=== PATIENT | female | born 1950 | race Caucasian/White ===

== ENCOUNTER 2017-02-19 08:19 | Emergency (ER) | payer MEDICARE ==
[2017-02-19] MEDS ORDERED: SODIUM CHLORIDE 0.9% 1,000 ML IV ONE (08:46)
--- NOTE | 2017-02-19 08:49 | ED Physician Documentation ---
History of Present Illness - Stated complaint Stated Complaint: BLOOD IN STOOL - Chief complaint Chief Complaint: Abd Pain - Additonal information Additional information: hx from pt 67 female pshx hyst some dark stools recently then starting yesterday LLQ pain and bloody diarrhea - stool is brown with blood mixed in no NV no fever known diverticulosis does drink but no LUQ pain or hematemesis no blood thinners no recent antibiotics no foreign travel no sick contacts no bad food Review of Systems Constitutional: denies: Fever, Chills Cardiac: denies: Chest pain / pressure Respiratory: denies: Dyspnea GI: reports: Abdominal Pain (LLQ), Diarrhea, Bloody / black stool. denies: Nausea, Vomiting Neurologic: denies: Generalized weakness Endocrine: denies: Easy bruising / bleeding Immunocompromised: denies: Immunocompromised PD PAST MEDICAL HISTORY - Past Medical History Past Medical History: Yes Neuro: Other GI: Diverticulitis - Past Surgical History Past Surgical History: Yes /[employer]: Hysterectomy HEENT: Tonsil/Adenoidectomy - Present Medications Home Medications: Ambulatory Orders Medication Instructions Recorded Confirmed Amox/Clav 875/125 [Augmentin] 1 each PO Q12H #20 tablet 02/19/17 Docusate Sodium 250Mg Capsule 250 mg PO DAILY #30 capsule 02/19/17 [Colace 250Mg Capsule] Hydrochlorothiazide 0 mg DAILY 02/19/17 02/19/17 Metformin HCl 0 mg PO 02/19/17 - Allergies Allergies/Adverse Reactions: Allergies Allergy/AdvReac Type Severity Reaction Status Date / Time codeine Allergy Unknown Verified 02/19/17 08:33 - Social History Does the pt smoke?: No Smoking Status: Never smoker Does the pt drink ETOH?: Yes Does the pt have substance abuse?: Yes PD ED PE NORMAL - Vitals Vital signs reviewed: Yes - Neck Neck: Supple, no meningeal sign - Cardiac Cardiac: RRR - Respiratory Respiratory: No respiratory distress, Clear bilaterally - Abdomen Abdomen: Soft, Other (TTP LLQ s rebound or guarding) - Rectal Rectal: Other (small flaccid non bleeding hemorrhoid, no fissure seen, no mass on JUDY, brown stool no gorss blood, no developer in ER so sent to lab for occult blood) - Derm Derm: Normal color - Extremities Extremities: No deformity - Neuro Neuro: Alert and oriented X 3 Results - Vitals Vitals: Vital Signs - 24 hr 02/19/17 08:23 Temperature 36.5 C Heart Rate 65 Respiratory 18 Rate Blood Pressure 154/82 H O2 Saturation 98 Oxygen O2 Source Room air - Labs Labs: Microbiology 02/19/17 08:40 Occult Blood - Final Stool Laboratory Tests 02/19/17 02/19/17 02/19/17 10:05 10:05 10:05 WBC 7.6 RBC 4.28 Hgb 12.7 Hct 37.5 MCV 87.6 MCH 29.6 MCHC 33.8 RDW 14.2 Plt Count 228 MPV 7.6 L Neut # 5.5 Lymph # 1.2 L Crockett # 0.6 Eos # 0.2 Baso # 0.0 Absolute Nucleated RBC 0.00 Nucleated RBCs 0.0 PT 10.5 INR 0.9 APTT 28.7 Sodium 143 Potassium 4.0 Chloride 108 Carbon Dioxide 27 Anion Gap 8.0 BUN 13 Creatinine 1.0 Estimated GFR (MDRD) 55 L Glucose 131 H Calcium 9.1 Blood Type Antibody Screen 02/19/17 02/19/17 10:05 11:07 WBC RBC Hgb 12.2 Hct MCV MCH MCHC RDW Plt Count MPV Neut # Lymph # Crockett # Eos # Baso # Absolute Nucleated RBC Nucleated RBCs PT INR APTT Sodium Potassium Chloride Carbon Dioxide Anion Gap BUN Creatinine Estimated GFR (MDRD) Glucose Calcium Blood Type O NEGATIVE Antibody Screen NEGATIVE - Rads (name of study) CT abd pelvis Radiology: See rad report (mild wall thickeniong L and sigmoid colon, mild adjacent fat stranding, diverticulosis, this could be dicerticulitis or colitis with the usual ddx of infectious (likely given hx) inflammatory or ischemic ( unlikely given no hx of inflammatory bowel dz and not having pain out of proportion to exam)) PD MEDICAL DECISION MAKING - ED course ED course: given no hx a fib, not acidotic, and pain not out of proportion to exam doubt ischemic colitis will tx with ab - gave zosyn in ER hemodynamically stable H/H nl will rpt hg and if stable will try outpt tx on clear liquids and augmentin with close PMD fup for serial H/H hgb dropped 0.5 which is to be expected after 1 L NS and so feel safe to dc Departure - Departure Disposition: 01 Home, Self Care Clinical Impression: Colitis GIB (gastrointestinal bleeding) Qualifiers: GI bleed type/associated pathology: unspecified gastrointestinal hemorrhage type Qualified Code(s): K92.2 - Gastrointestinal hemorrhage, unspecified Instructions: ED Hematochezia Stable, ED Diverticulitis, ED Diet Clear Liquid Follow-Up: Corinna Gaming PA [Primary Care Provider] - (within 48 hr for a recheck and repeat blood count - also may need referral for GI scopes when infection has resolved ) DASH KRUSE MD [Provider Admit Priv/Credential] - (for colonoscopy after the infection has subsided - this is very important because occasionally cancer can present with colon inflammation and bleeding) Prescriptions: Amox/Clav 875/125 [Augmentin] 1 each PO Q12H #20 tablet Docusate Sodium 250Mg Capsule [Colace 250Mg Capsule] 250 mg PO DAILY #30 capsule Comments: The CT scan shows a colon infection. Although you are bleeding, your blood pressure and heart rate are fine and your blood count is not dropping So it seems reasonable to try and treat you as an outpatient with oral antibiotics You need to be on a clear diet for 48 hours to allow your colon to rest. Also take a stool softener to prevent strain on the colon wall. Close follow up with your PMD for a repeat abdominal exam and to recheck your blood count is very important - even with good antibiotics, some patients worsen and end up needing to be admitted Also, when the infection has resolved you need to get a colonoscopy - sometimes colon cancer can present with similar symptoms
--- NOTE | 2017-02-19 09:42 | CT Report ---
EXAM: CT ABDOMEN AND PELVIS EXAM DATE: 02/19/2017 09:27 AM. CLINICAL HISTORY: LLQ pain and bloody diarrhea. COMPARISONS: 04/13/2015. TECHNIQUE: Routine axial helical CT imaging was performed through the abdomen and pelvis without IV c ontrast. Reconstructions: Coronal and sagittal. In accordance with CT protocol optimization, one or more of the following dose reduction techniques w ere utilized for this exam: automated exposure control, adjustment of mA and/or KV based on patient s ize, or use of iterative reconstructive technique. FINDINGS: Lung Bases: Unremarkable. Abdominal Organs: Noncontrast images of the abdominal organs are grossly unremarkable. Gallbladder/bile ducts: No significant abnormalities. Peritoneal Cavity: Stomach and small bowel are within normal limits. There is mild low left and sigmo id colon wall thickening. There is adjacent fat stranding. There is sigmoid colon diverticulosis. The transverse and right colon are unremarkable. The appendix is normal. No intraperitoneal free air or free fluid. No enlarged mesenteric or retroperitoneal lymph nodes. Pelvic Organs: No bladder stones or wall thickening. Noncontrast images of the visualized pelvic orga ns are unremarkable. Vasculature: Unremarkable. Other: None. IMPRESSION: 1. There is mild wall thickening involving the left colon and sigmoid colon. There is some mild adjac ent fat stranding. There is sigmoid colon diverticulosis. The wall thickening is more likely represen tative of colitis than diverticulitis given the relative long segment involvement. Differential consi derations include ischemic colitis, infection, or inflammatory bowel disease. The transverse and righ t colon are within normal limits. 2. There are atheromatous calcifications of the aorta and iliac vessels. 3. The kidneys demonstrate no stones or hydronephrosis. Referring Provider Line: [phone] SITE ID: [id number]
[2017-02-19] MEDS ORDERED: PIPERACILLIN/TAZOBACTAM 3.375 GM in SODIUM CHLORIDE 0.9% MINIBAG 100 ML IV STA (09:51)
[2017-02-19 10:13] LABS: BASOPHILS % (AUTO) 0.5 %; EOSINOPHILS # (AUTO) 0.2 10^3/uL (0.0-0.7); EOSINOPHILS % (AUTO) 2.6 %; HCT - HEMATOCRIT 37.5 % (37.0-47.0); HGB - HEMOGLOBIN 12.7 g/dL (12.0-16.0); LYMPHOCYTES # (AUTO) 1.2 10^3/uL (1.5-3.5); LYMPHOCYTES % (AUTO) 16.2 %; MEAN CORPUSCULAR HEMOGLOBIN 29.6 pg (27.0-31.0); MEAN CORPUSCULAR HGB CONC 33.8 g/dL (32.0-36.0); MEAN CORPUSCULAR VOLUME 87.6 fL (81.0-99.0); MEAN PLATELET VOLUME 7.6 fL (7.9-10.8); MONOCYTES # (AUTO) 0.6 10^3/uL (0.0-1.0); NEUTROPHILS # (AUTO) 5.5 10^3/uL (1.5-6.6); NEUTROPHILS % (AUTO) 72.7 %; RED BLOOD COUNT 4.28 10^6/uL (4.20-5.40); RED CELL DISTRIBUTION WIDTH 14.2 % (12.0-15.0); UNCORRECTED WHITE BLOOD COUNT 7.6 x10^3/uL; WHITE BLOOD COUNT 7.6 x10^3/uL (4.8-10.8)
[2017-02-19 10:22] LABS: CALCIUM 9.1 mg/dL (8.5-10.3); INR 0.9 (0.8-1.2); PT - PROTHROMBIN TIME 10.5 secs (9.9-12.6)
[2017-02-19 10:30] LABS: PARTIAL THROMBOPLASTIN TIME 28.7 secs (24.9-33.3)
[2017-02-19 12:01] VITALS: BP 150/88
== END 2017-02-19 12:11 | disposition home or self-care (01) ==
LOC: ED 08:19
DX: K52.9 Noninfective gastroenteritis and colitis, unspecified (principal); K92.1 Melena; Z87.19 Personal history of other diseases of the digestive system
CPT/HCPCS: 36415; 74176; 80048; 82270; 85018; 85025; 85610; 85730; 86850; 86900; 86901; 96361; 96374; 99283; 99284

== ENCOUNTER 2017-04-19 09:34 | Day surgery (SDC) | payer MEDICARE ==
[2017-04-19] MEDS ORDERED: LACTATED RINGERS 1,000 ML IV ONE (09:39)
[2017-04-19] MEDS ORDERED: fentaNYL 100 MCG/2 ML VIAL IVP ONE (10:13)
[2017-04-19] MEDS ORDERED: MIDAZOLAM 2 MG/2 ML VIAL IVP ONE (10:13)
--- NOTE | 2017-04-19 10:17 | HISTORY & PHYSICAL EXAMINATION ---
HPI - History of Present Illness HPI Comment/Other: History of Present Illness: Here for change in bowel habits and recurrent colitis. Past Medical History: Reviewed history from 10/05/2009 and no changes required: Obesity OA Hands Impaired Fasting Glucose Hyperlipidemia Heart Murmur Hyperlipidemia Severe Snoring Sleep Apnea/CPAP Heartburn Acid Reflux Anxiety Panic Attacks Claustrophobia Past Surgical History: Reviewed history from 02/25/2008 and no changes required: JOÃO Tonsillectomy Hysterectomy Family History Summary: Reviewed history Last on 08/02/2010 and no changes required:03/16/2017 Father (biol.) - Has Family History of Other Diseases - Cancer of throat, COPD - Entered On: 03/16/2017 General Comments - FH: Both sides: glaucoma Mother: MS Dad: esophageal ca Social History: Reviewed history from 10/13/2009 and no changes required: Patient has never smoked. Alcohol Use - yes Works for [employer], works in the [employer]. Risk Factors: Smoked Tobacco Use: Current every day smoker Counseled to quit/cut down: yes Passive smoke exposure: no Drug use: no HIV high-risk behavior: no Caffeine use: 1 drinks per day Alcohol use: yes Type: wine Drinks per day: 2 Exercise: no Seatbelt use: 100 % Sun Exposure: occasionally Family History Risk Factors: Family History of OK in females < 65 years old: no Family History of [place] in males < 55 years old: no Previous Tobacco Use: Signed On - 03/24/2008 Smoked Tobacco Use: quit Pack-years: 25 Passive smoke exposure: no Drug use: no HIV high-risk behavior: no Caffeine use: 1 drinks per day Physical Exam General: well developed, well nourished, in no acute distress Lungs: clear bilaterally to A & P Heart: regular rate and rhythm, S1, S2 without murmurs, rubs, gallops, or clicks Abdomen: bowel sounds positive; abdomen soft and non-tender without masses, organomegaly, or hernias noted Pulses: pulses normal in all 4 extremities Extremities: no clubbing, cyanosis, edema, or deformity noted with normal full range of motion of all joints Cervical Nodes: no significant adenopathy Psych: alert and cooperative; normal mood and affect; normal attention span and concentration Problems: Problems Added: 1) Dx of Change in bowel habit (OBL02-E17.4) (ICD-787.99) Impression & Recommendations: Problem # 1: change in bowel habits, recent diverticulitis proceed with colonoscopy PMH/PSH - Past Medical History Cardiovascular: positive: None Respiratory: positive: Sleep apnea, CPAP use Neuro: positive: Other Endocrine/Autoimmune: GI: positive: GI bleed, Chronic constipation, Diverticulitis : positive: None HEENT: positive: Chronic sinusitis, Chronic hearing loss Psych: positive: None Musculoskeletal: positive: Osteoarthritis, Chronic back pain Derm: positive: None MRSA Hx?: No - Past Surgical History General: positive: Colonoscopy /TRAINING AND DEVELOPMENT HEAD: positive: Hysterectomy HEENT: positive: Tonsil/Adenoidectomy Social & Family Hx - Social History Does the pt smoke?: No Smoking Status: Never smoker Does the pt drink ETOH?: Yes Does the pt have substance abuse?: Yes Substance Use and Type: Marijuana Meds/Allgy - Home Medications Home Medications: Ambulatory Orders Medication Instructions Recorded Confirmed Metformin HCl 0 mg PO BID 02/19/17 04/19/17 Cholecalciferol (Vitamin D3) 2,000 unit PO DAILY 04/19/17 04/19/17 [Vitamin D] Triamterene/Hydrochlorothiazid 1 each PO DAILY 04/19/17 04/19/17 [Triamterene-Hctz 37.5-25 mg Tb] - Allergies Allergies/Adverse Reactions: Allergies Allergy/AdvReac Type Severity Reaction Status Date / Time codeine Allergy Unknown Verified 02/19/17 08:33 Exam - Vital Signs Vital Signs: Vital Signs x48h Temp Pulse Resp BP Pulse Ox 04/19/17 09:39 36.4 C L 78 16 153/92 H 9 L Results - Lab Results Other Lab Results: Lab Results x24hrs 04/19/17 Range/Units 10:00 POC Whole Bld Glucose 122 H (70 - 100) mg/dL
[2017-04-19 11:20] VITALS: BP 113/70
== END 2017-04-19 09:35 | disposition home or self-care (01) ==
LOC: SDS 09:34
PROVIDERS: ATTEND Surgery
PROC: 0DBL8ZX Excision of Transverse Colon, Via Natural or Artificial Opening Endoscopic, Diagnostic (ICD-10-PCS; principal; 2017-04-19 10:45)
DX: R19.4 Change in bowel habit (principal); K57.30 Diverticulosis of large intestine without perforation or abscess without bleeding; D12.3 Benign neoplasm of transverse colon; K64.8 Other hemorrhoids; E66.9 Obesity, unspecified; F17.200 Nicotine dependence, unspecified, uncomplicated
CPT/HCPCS: 45380; J7120

== ENCOUNTER 2017-09-25 11:32 | Outpatient (CLI) | payer MEDICARE ==
--- NOTE | 2017-09-26 16:03 | Mammography Report ---
DATE OF SERVICE: 09/25/2017 DIGITAL SCREENING MAMMOGRAM: 09/25/2017 CLINICAL INDICATION: A 67-year-old, for screening. COMPARISON: 06/2016, 04/2014, 01/2012, 07/2010. TECHNIQUE: Routine CC and MLO projections were obtained of the breasts. Bilateral laterally exaggerated craniocaudal views. FINDINGS: The breasts demonstrate scattered fibroglandular densities bilaterally. Coarse and punctate, typically benign calcifications are present. No suspicious masses, clustered microcalcifications, or regions of architectural distortion are identified. IMPRESSION: BENIGN FINDINGS. RECOMMENDATION: ROUTINE ANNUAL SCREENING UNLESS OTHERWISE CLINICALLY INDICATED. BIRADS CATEGORY 2-BENIGN FINDINGS. STANDARD QUALIFYING STATEMENTS: 1. This examination was reviewed with the aid of Computer-Aided Detection (CAD) . 2. A negative or benign imaging report should not delay biopsy if clinically suspicious findings are present. Consider surgical consultation if warranted. More than 5 % of cancers are not identified by imaging. 3. Dense breasts may obscure an underlying neoplasm. TD: 09/26/2017 17:01 MARISELA
== END 2017-09-25 11:33 | disposition home or self-care (01) ==
LOC: DI.S 11:32
PROVIDERS: ATTEND Physician Assistant
DX: Z12.31 Encounter for screening mammogram for malignant neoplasm of breast (principal)
CPT/HCPCS: 77067

== ENCOUNTER 2019-03-13 14:16 | Outpatient (CLI) | payer MEDICARE, OTHER ==
--- NOTE | 2019-03-17 11:13 | Mammography Report ---
Reason: ENCOUNTER FOR SCREENING MAMMOGRAM FOR MALIGNANT NE Procedure Date: 03/13/2019 Accession Number: [id number] / [id number] Procedure: JEANETH - Screening Mammo w/Jay CPT Code: FULL RESULT: EXAM: Screening Mammo w/Jay DATE: 03/13/2019 3:16 PM CLINICAL HISTORY: Screening encounter. History of early menses. TECHNIQUE: (B) - Bilateral CC and MLO views were obtained. COMPARISON: 09/25/2017 through 01/26/2012. PARENCHYMAL PATTERN: (A) - The breast(s) demonstrate(s) scattered fibroglandular densities. FINDINGS: There are coarse typically benign calcifications. There are no suspicious masses, calcifications, or areas of distortion. IMPRESSION: Benign findings. BI-RADS category 2. RECOMMENDATION: (ANNUAL) - Recommend routine annual screening mammography. BI-RADS CATEGORY: (2) - Benign Findings. STANDARD QUALIFYING STATEMENTS: 1. This examination was not reviewed with the aid of Computer-Aided Detection (CAD). 2. A negative or benign imaging report should not preclude biopsy if clinically suspicious findings are present. 3. Dense breasts may obscure an underlying neoplasm. 4. This examination was reviewed with the aid of 3D breast imaging (tomosynthesis).
== END 2019-03-13 14:17 | disposition home or self-care (01) ==
LOC: DI 14:16
PROVIDERS: ATTEND Physician Assistant
DX: Z12.31 Encounter for screening mammogram for malignant neoplasm of breast (principal)
CPT/HCPCS: 77063; 77067

== ENCOUNTER 2019-03-13 14:20 | Outpatient (CLI) | payer MEDICARE, OTHER ==
--- NOTE | 2019-03-17 08:01 | DEXA Report ---
Reason: POSTMENOPAUSAL STATE Procedure Date: 03/13/2019 Accession Number: [id number] / [id number] Procedure: DEX - Dexa Spine and/or Hip CPT Code: FULL RESULT: EXAM: Dexa Spine and/or Hip DATE: 03/13/2019 3:14 PM CLINICAL HISTORY: POSTMENOPAUSAL STATE TECHNIQUE: Dual energy x-ray absorptiometry (DXA) was performed on a [employer] System. Regions measured are the AP Spine, femoral neck, and if needed forearm. COMPARISON: None. In accordance with the International Society for Clinical Densitometry (ISCD) guidelines, data from previous exams may be reanalyzed using current recommendations and techniques. This is done to allow a more accurate basis for comparison with the current study. FINDINGS: The data for the lumbar spine is as follows: BMD (g/cm/cm) T-SCORE Z-SCORE REGION L1 1.069 -0.5 0.7 L2 1.118 -0.7 0.5 L3 1.302 0.9 2.1 L4 1.256 0.5 1.7 TOTAL 1.185 0.0 1.3 NOTE: All evaluable vertebrae are used for classification The data for the hip is as follows: BMD (g/cm/cm) T-SCORE Z-SCORE REGION Neck 0.847 -1.4 0.1 TOTAL 0.871 -1.1 0.1 NOTE: The femoral neck or total proximal femur, whichever is lowest, is used for classification. IMPRESSION: THE WHO CLASSIFICATION BASED ON THE INTERNATIONAL REFERENCE STANDARD IS OSTEOPENIA. THE FRACTURE RISK IS INCREASED. RECOMMENDATION: Patients with diagnosis of osteoporosis or osteopenia should have regular bone mineral density assessment. For those eligible for Medicare, routine testing is allowed once every 2 years. Testing frequency can be increased for patients who have rapidly progressing disease or for those who are receiving medical therapy to restore bone mass. COMMENT: World Health Organization (WHO) definitions for osteoporosis and osteopenia: NORMAL BMD: T-score at -1.0 or higher, fracture risk is low OSTEOPENIA BMD: T-score between -1.0 and -2.5, fracture risk is increased. OSTEOPOROSIS BMD: T-score at -2.5 or lower, fracture risk is high. National Osteoporosis Foundation recommends: 1. Obtain adequate dietary calcium (at least 1200 mg per day) and vitamin D (400-800 international units per day). 2. Participate, as appropriate, in regular weightbearing and muscle-strengthening exercise. 3. Avoid tobacco use and reduce alcohol and caffeine intake. 4. For more detailed information see the website at www.NOF.org.
== END 2019-03-13 14:21 | disposition home or self-care (01) ==
LOC: DI 14:20
PROVIDERS: ATTEND Physician Assistant
DX: M85.89 Other specified disorders of bone density and structure, multiple sites (principal); Z78.0 Asymptomatic menopausal state
CPT/HCPCS: 77080

== ENCOUNTER 2019-03-18 20:13 | Outpatient (CLI) | payer MEDICARE, OTHER | END 2019-03-18 20:14 | disposition EMS.NT | LOC: EMS 20:13 | PROVIDERS: ATTEND Surgery | DX: R06.00 Dyspnea, unspecified (principal) ==

== ENCOUNTER 2020-04-15 12:32 | Outpatient (CLI) | payer MEDICARE, OTHER ==
--- NOTE | 2020-04-16 12:42 | Mammography Report ---
BILATERAL DIGITAL DIAGNOSTIC MAMMOGRAM 3D/2D: 04/15/2020 CLINICAL: Nipple discharge, right breast, not bloody. Comparison is made to exams dated: 03/13/2019 mammogram, 09/25/2017 mammogram, 06/15/2016 mammogram, a nd 04/24/2014 mammogram - [facility]. There are scattered fibroglandular elements i n both breasts. No significant masses, calcifications, or other findings are seen in either breast. No significant in terval change. IMPRESSION: INCOMPLETE: NEEDS ADDITIONAL IMAGING EVALUATION No mammographic evidence of malignancy. A targeted ultrasound of the retroareolar right breast is recommended for nipple discharge and will i mmediately follow. This exam was interpreted at Station ID: [id number]. NOTE: For mammograms, a report in lay terms will be sent to the patient. Approximately 15% of breast malignancies will not be visualized mammographically. In the management of a palpable breast mass, a negative mammogram must not discourage biopsy of a clinically suspicious lesion. Electronically Signed By: Rashad Moreira M.D. slc/:04/15/2020 13:21:01 ACR BI-RADS Category 0: Incomplete 3340F PARENCHYMAL PATTERN: (A) - The breast(s) demonstrate(s) scattered fibroglandular densities. BI-RADS CATEGORY: (0) - 0 Ultrasound [id number] Immediate follow-up LATERALITY: (B)
--- NOTE | 2020-04-16 12:42 | Ultrasound Report ---
LIMITED ULTRASOUND OF RIGHT BREAST: 04/15/2020 CLINICAL: Nipple discharge, right breast, not bloody. Comparison is made to exams dated: 04/15/2020 mammogram, 03/13/2019 mammogram, 09/25/2017 mammogram, an d 06/15/2016 mammogram - [facility]. Color flow and real-time ultrasound of the right breast retroareolar were performed. Duenas scale imag es of the real-time examination were reviewed. No significant abnormalities were seen sonographically in the retroareolar right breast. IMPRESSION: INCOMPLETE: NEEDS ADDITIONAL IMAGING EVALUATION No sonographic evidence of malignancy. Recommend breast MRI with IV contrast in this patient with right breast single duct spontaneous clear nipple discharge. Exam findings conveyed to the patient. This exam was interpreted at Station ID: [id number]. Electronically Signed By: Rashad Moreira M.D. slc/:04/15/2020 13:46:42 Ultrasound BI-RADS: 0 Indeterminate BI-RADS CATEGORY: (0) - 0 MRI [id number] Immediate follow-up LATERALITY: (B)
== END 2020-04-15 12:33 | disposition home or self-care (01) ==
LOC: DI 12:32
PROVIDERS: ATTEND Registered Nurse
DX: N64.52 Nipple discharge (principal)
CPT/HCPCS: 76642; 77066

== ENCOUNTER 2020-04-26 08:45 | Outpatient (CLI) | payer MEDICARE, OTHER ==
[2020-04-26] MEDS ORDERED: GADOBUTROL 7.5 MMOL/7.5 ML VIAL ONE (09:23)
[2020-04-26] MEDS ORDERED: GADOBUTROL 7.5 MMOL/7.5 ML VIAL IVP ONE (10:19)
--- NOTE | 2020-04-27 09:26 | MRI Report ---
BREAST MRI OF BOTH BREASTS: 04/26/2020 CLINICAL: Nipple discharge, right breast, not bloody. PROCEDURE: MR BREAST BILATERAL WITH CAD INDICATIONS: Right breast nipple discharge. No palpable mass. TECHNIQUE: The patient was placed prone in a dedicated breast imaging coil. Precontrast axial STIR and 3D FLASH without fat saturation sequences were obtained. Both before and after bolus injection of contrast, sequential 1-minute axial 3D FLASH with fat saturation sequences for 3 time points, with subtraction images and maximum intensity projections (MIPs) generated. Delayed sagittal FLASH images with fat s aturation were also obtained. Computer-aided detection, including computer algorithm analysis of MRI image data for lesion detectio n and characterization, pharmacokinetic analysis, with further physician review for interpretation, w as performed. CONTRAST: 7.5 cc Gadavist. COMPARISON: Mammogram 04/15/2020. Right retroareolar ultrasound 04/15/2020. FINDINGS: Image quality: Good. There is minimal background parenchymal enhancement. Right breast: No mass or suspicious enhancement. No instrinsic T1 hyperintense signal in the retroareolar breast. Left breast: No mass or suspicious enhancement. No instrinsic T1 hyperintense signal in the retroareolar breast. Miscellaneous: No enlarged or suspicious lymph nodes demonstrated. IMPRESSION: PROBABLY BENIGN 1. Right breast: No mass or suspicious enhancement. 2. Left breast: No mass or suspicious enhancement. 3. No suspicious lymph nodes in either axilla. BIRADS 3. Patient should continue to monitor the nipple discharge. A follow-up right breast mammogram and possi ble ultrasound in 6 months is recommended in this patient with spontaneous single duct nipple dischar ge with negative imaging. If nipple discharge increases, surgical consultation should be considered. COMMENT: The imaging literature indicates that a negative contrast breast MRI examination has a high sensitivity and a moderate specificity for detecting and excluding invasive carcinomas to a detection threshold of 3-5 mm; nonetheless, appropriate clinical and mammographic follow-up are recommended. MRI is not sensitive for detecting DCIS (ductal carcinoma in situ) and may not detect large invasive neoplasms that show only minimal enhancement such as mucinous carcinoma. If there are suspicious ameena cifications or clinically worrisome palpable masses, then biopsy should still be considered. Invasiv e neoplasms can be hidden by co-existent and benign enhancement caused by mastitis, hormone therapy e ffects, radiation therapy, , and recent biopsy or surgery. False positive examinations can occur in a number of circumstances, including breasts that have recently been subject to invasive pro cedures and those that contain atypical ductal hyperplasia, hormonally stimulated glandular tissue, f at necrosis, or radial scars. Reviewed by: Rashad Moreira M.D. on 04/26/2020 at 15:06 This exam was interpreted at Station ID: [id number]. Electronically Signed By: Rashad Moreira M.D. slc/:04/26/2020 16:17:13 ACR BI-RADS Category 3: Probably benign 3343F BI-RADS CATEGORY: (3) - 3 Mammo and [place] [id number] 6 month follow-up LATERALITY: (B)
== END 2020-04-26 08:46 | disposition home or self-care (01) ==
LOC: DI 08:45
PROVIDERS: ATTEND Registered Nurse
DX: R92.2 Inconclusive mammogram (principal); N64.52 Nipple discharge
CPT/HCPCS: 77049; A9585

== ENCOUNTER 2021-07-01 12:32 | Outpatient (CLI) | payer MEDICARE, OTHER ==
--- NOTE | 2021-07-04 08:20 | Mammography Report ---
BILATERAL DIGITAL DIAGNOSTIC MAMMOGRAM 3D/2D: 07/01/2021 CLINICAL: Short term follow up of the right breast, due for bilateral imaging. Comparison is made to exams dated: 04/26/2020 breast MRI, 04/15/2020 ultrasound, 04/15/2020 mammogram, 03/13/2019 mammogram, 09/25/2017 mammogram, and 06/15/2016 mammogram - [facility]. T here are scattered fibroglandular elements in both breasts. No significant masses, calcifications, or other findings are seen in either breast. IMPRESSION: BENIGN There is no mammographic evidence of malignancy. Patient reports significant improvement in right breast nipple discharge. The discharge is now descri bed as scant with manual expression and clear. No discharge for several weeks. A 1 year mammogram is recommended. Exam findings were conveyed to the patient. Patient is advised to monitor for significant change. Cli nical follow-up is recommended. If discharge were to increase or new symptoms develop, recommend [address] st MRI for further evaluation. This exam was interpreted at Station ID: [id number]. NOTE: For mammograms, a report in lay terms will be sent to the patient. Approximately 15% of breast malignancies will not be visualized mammographically. In the management of a palpable breast mass, a negative mammogram must not discourage biopsy of a clinically suspicious lesion. Electronically Signed By: Rashad Moreira M.D. slc/:07/01/2021 13:33:53 ACR BI-RADS Category 2: Benign Finding(s) 3342F PARENCHYMAL PATTERN: (A) - The breast(s) demonstrate(s) scattered fibroglandular densities. BI-RADS CATEGORY: (2) - 2 RECOMMENDATION: (ANNUAL) - Recommend routine annual screening mammography. [id number] 1 year screening LATERALITY: (B)
== END 2021-07-01 12:33 | disposition home or self-care (01) ==
LOC: DI 12:32
PROVIDERS: ATTEND Registered Nurse
DX: N64.52 Nipple discharge (principal)

== ENCOUNTER 2021-10-15 08:42 | Outpatient (CLI) | payer MEDICARE, OTHER ==
[2021-10-15] MEDS ORDERED: IOPAMIDOL-300 50 ML VIAL ONE (09:00)
[2021-10-15] MEDS ORDERED: IOVERSOL 320 100 ML VIAL IVP ONE ×2 (09:00→14:40)
--- NOTE | 2021-10-15 14:35 | CT Report ---
PROCEDURE: CT abdomen and pelvis with contrast INDICATIONS: CHANGE IN STOOL CALIBER CONTRAST: IV CONTRAST: Optiray 320 ml: 100 PO CONTRAST: Isovue 300 ml50 TECHNIQUE: After the administration of contrast, 5 mm thick sections acquired from the diaphragms to the sym physis. 5 mm thick coronal and sagittal reformats were acquired. For radiation dose reduction, the following was used: automated exposure control, adjustment of mA and/or kV according to patient size . COMPARISON: 02/19/2017 FINDINGS: Image quality: Excellent. ABDOMEN: Lung bases: Lung bases are clear. Heart size is normal. Solid organs: Liver and spleen are normal in size and enhancement. Gallbladder unremarkable Biliar y system is non dilated. Pancreas enhances normally. No adrenal nodules. Kidneys demonstrate jb l size and enhancement, without hydronephrosis. Peritoneum and bowel: Bowel loops demonstrate normal wall thickness and caliber. No free fluid or a ir. Multiple diverticula arise from the sigmoid colon without evidence of diverticulitis. Normal appe ndix noted. Nodes and vessels: No retroperitoneal or mesenteric adenopathy by size criteria. Aorta and inferior vena cava are normal in size. Miscellaneous: No ventral hernias. PELVIS: Genitourinary: Bladder wall thickness is normal. Hysterectomy. Miscellaneous: No inguinal hernias or adenopathy. Bones: No suspicious bony lesions. No vertebral body compression fractures. IMPRESSION: No acute CT findings in the abdomen or pelvis. Sigmoid diverticulosis without evidence of diverticulitis. Reviewed by: Thomas Sanders MD on 10/15/2021 1:33 PM [place] Approved by: Thomas Sanders MD on 10/15/2021 1:33 PM [facility] Station ID: [id number]
[2021-10-15] MEDS ORDERED: IOPAMIDOL-300 50 ML VIAL PO ONE (14:41)
== END 2021-10-15 08:43 | disposition home or self-care (01) ==
LOC: DI 08:42
PROVIDERS: ATTEND Registered Nurse
DX: R19.5 Other fecal abnormalities (principal); K57.30 Diverticulosis of large intestine without perforation or abscess without bleeding
CPT/HCPCS: 74177; Q9967

== ENCOUNTER 2022-06-14 09:45 | Day surgery (SDC) | payer MEDICARE, OTHER ==
[2022-06-14] MEDS ORDERED: LACTATED RINGERS 1,000 ML IV ONE ×2 (09:52→11:38)
[2022-06-14] MEDS ORDERED: PROPOFOL 500 MG/50 ML 500 MG/50 ML VIAL ONE (10:31)
[2022-06-14] MEDS ORDERED: PROPOFOL 200 MG/20 ML VIAL IVP ONE (10:31)
--- NOTE | 2022-06-14 10:36 | ANESTHESIA ---
Pre-Anesthesia VS, & Labs - Diagnosis screening colonoscopy - Procedure colonoscopy Vital Signs: Temp Pulse Resp BP Pulse Ox O2 Flow Rate 36.8 C 70 16 183/100 H 100 0 06/14/22 10:05 06/14/22 10:05 06/14/22 10:05 06/14/22 10:05 06/14/22 10:05 06/14/22 10:05 Height: 5 ft 5 in Weight (kg): 85.2 kg Body Mass Index: 31.2 BMI Classification: Obese - NPO >8 hours - Is Patient ?: No Home Medications and Allergies Triamterene/Hydrochlorothiazid [Triamterene-Hctz 37.5-25 mg Tb] 1 each PO PRN PRN 04/19/17 Allergies/Adverse Reactions: Allergies Allergy/AdvReac Type Severity Reaction Status Date / Time codeine Allergy Unknown Verified 02/19/17 08:33 Anes History & Medical History - Anesthetic History Anesthesia Complications: reports: No previous complications - Medical History Cardiovascular: reports: None Pulmonary: reports: Sleep apnea, CPAP use Gastrointestinal: reports: GI bleed, Chronic constipation, Diverticulitis Urinary: reports: None Musculoskeletal: reports: Osteoarthritis, Chronic back pain Endocrine/Autoimmune: Skin: reports: None Smoking Status: Never smoker History of Cancer?: No - Surgical History General: reports: Colonoscopy Eyes Ears Nose Throat (EENT): reports: Tonsil/Adenoidectomy Gynecologic: reports: Hysterectomy Exam General: Alert, Oriented x3, Cooperative Dental: WNL Mouth Openin Fingerbreadth Neck Mobility: Normal Mallampati classification: II Thyromental Distance: greater than 6 cm Respiratory: Lungs clear Cardiovascular: Regular rate Plan Anesthesia Type: Total IV Consent for Procedure(s) Verified and Reviewed: Yes Code Status: Attempt Resuscitation ASA classification: 2-Mild systemic disease Is this case an emergency?: No
[2022-06-14 11:57] VITALS: BP 121/68
== END 2022-06-14 09:46 | disposition home or self-care (01) ==
LOC: SDS 09:45
PROVIDERS: ATTEND Surgery
PROC: 0DBL8ZX Excision of Transverse Colon, Via Natural or Artificial Opening Endoscopic, Diagnostic (ICD-10-PCS; 2022-06-14)
PROC: 0DBP8ZX Excision of Rectum, Via Natural or Artificial Opening Endoscopic, Diagnostic (ICD-10-PCS; 2022-06-14)
PROC: 0DBK8ZX Excision of Ascending Colon, Via Natural or Artificial Opening Endoscopic, Diagnostic (ICD-10-PCS; principal; 2022-06-14 10:45)
DX: Z12.11 Encounter for screening for malignant neoplasm of colon (principal); D12.2 Benign neoplasm of ascending colon; D12.3 Benign neoplasm of transverse colon; K63.5 Polyp of colon; K57.30 Diverticulosis of large intestine without perforation or abscess without bleeding; G47.33 Obstructive sleep apnea (adult) (pediatric); E66.9 Obesity, unspecified; Z68.31 Body mass index [BMI] 31.0-31.9, adult; Z87.891 Personal history of nicotine dependence
CPT/HCPCS: 45380; J7120

== ENCOUNTER 2022-12-30 19:06 | Outpatient (CLI) | payer MEDICARE, OTHER | END 2022-12-30 23:59 | disposition critical access hospital (66) | LOC: EMS 19:06 | DX: R06.02 Shortness of breath (principal); R53.1 Weakness; R55 Syncope and collapse; R42 Dizziness and giddiness; R07.9 Chest pain, unspecified | CPT/HCPCS: A0425; A0427 ==

== ENCOUNTER 2022-12-30 19:46 | Emergency (ER) | payer MEDICARE, OTHER ==
--- NOTE | 2022-12-30 19:59 | ED Physician Documentation ---
PD HPI CHEST PAIN - Stated complaint Stated Complaint: LIGHTHEADED, WEAK, CP - Chief complaint Chief Complaint: Cardiac - History obtained from History obtained from: Patient - History of Present Illness Timing - details: Still present in ED - Additional information Additional information: 72-year-old woman ate [employer] for dinner which is very typical for her. Subsequently went up the stairs and started to feel lightheaded weak and some substernal chest pressure. It lasted only a minute and then went away when she belched. She is pain-free now. No recent travel, pedal edema or calf pain. PD PAST MEDICAL HISTORY - Past Medical History Cardiovascular: None Respiratory: Sleep apnea, CPAP use Endocrine/Autoimmune:  GI: GI bleed, Chronic constipation, Diverticulitis : None HEENT: Chronic sinusitis, Chronic hearing loss Psych: None Musculoskeletal: Osteoarthritis, Chronic back pain Derm: None - Past Surgical History Past Surgical History: Yes General: Colonoscopy /[employer]: Hysterectomy HEENT: Tonsil/Adenoidectomy - Present Medications Home Medications: Ambulatory Orders Medication Instructions Recorded Confirmed Triamterene/Hydrochlorothiazid 1 each PO PRN PRN 04/19/17 06/14/22 [Triamterene-Hctz 37.5-25 mg Tb] - Allergies Allergies/Adverse Reactions: Allergies Allergy/AdvReac Type Severity Reaction Status Date / Time codeine Allergy Unknown Verified 02/19/17 08:33 meclizine Allergy Unknown Verified 06/14/22 11:06 - Social History Does the pt smoke?: No Smoking Status: Never smoker Does the pt drink ETOH?: Yes Does the pt have substance abuse?: Yes PD ED PE NORMAL - Vitals Vital signs reviewed: Yes (Hypertensive) - General General: Alert and oriented X 3, No acute distress - Cardiac Cardiac: RRR, No murmur - Respiratory Respiratory: No respiratory distress, Clear bilaterally - Abdomen Abdomen: Soft, Non tender - Extremities Extremities: No edema, No calf tenderness / cord - Neuro Neuro: Alert and oriented X 3, Normal speech Results - Vitals Vitals: Vital Signs - 24 hr 12/30/22 12/30/22 19:48 21:02 Temperature 36.8 C Heart Rate 98 79 Respiratory 18 14 Rate Blood Pressure 196/89 H 174/74 H O2 Saturation 99 95 Oxygen O2 Source Room air - EKG (time done) 1946 EKG releavant findings:: EKG personally interpreted by author of this note. Relevant findings are: Rate: Rate (enter#) (98) Rhythm: NSR [place]: Normal Intervals: Normal PA QRS: Normal Ischemia: Normal ST segments - Labs Labs: Laboratory Tests 12/30/22 12/30/22 12/30/22 20:36 20:36 20:36 WBC 10.3 RBC 4.69 Hgb 14.1 Hct 42.0 MCV 89.6 MCH 30.1 MCHC 33.6 RDW 13.5 Plt Count 224 MPV 9.4 Neut # (Auto) 8.2 H Lymph # (Auto) 1.2 L [place] # (Auto) 0.7 Eos # (Auto) 0.1 Baso # (Auto) 0.0 Absolute Nucleated RBC 0.00 Nucleated RBC % 0.0 Sodium 134 L Potassium 4.3 Chloride 98 L Carbon Dioxide 23 Anion Gap 13.0 BUN 24 H Creatinine 1.2 H Estimated GFR (MDRD) 44 L Glucose 239 H Calcium 10.0 Total Bilirubin 0.5 AST 25 ALT 23 Alkaline Phosphatase 51 Troponin I High Sens 4.7 Total Protein 7.4 Albumin 4.3 Globulin 3.1 Albumin/Globulin Ratio 1.4 Lipase 45 - Rads (name of study) Single view chest x-ray is unremarkable Relevant Findings:: Final report received, EMP independent interpretation of test PD Medical Decision Making - ED course ED course: 72-year-old woman presents with resolved chest pain. The pain resolved on burping suggesting a GI source. She is pain-free here with a very nonischemic EKG. Negative biomarkers. We did discuss the elevated blood sugar. Note made that on past metabolic panel she always runs somewhat high blood sugar, this is diet since then. Previous A1c's were normal. Will add on an A1c and she will follow-up with her doctor to discuss. The remainder of her CBC and CMP were normal save very mildly depressed renal function. Troponin normal/negative. Departure - Departure Disposition: 01 Home, Self Care Clinical Impression: Hyperglycemia Chest pain Qualifiers: Chest pain type: unspecified Qualified Code(s): R07.9 - Chest pain, unspecified Condition: Good Record reviewed to determine appropriate education?: Yes Instructions: ED Chest Pain Atypical Unkn Cause Comments: As discussed, your blood glucose today was 239. I have added an A1c onto the labs we george, please follow-up with your doctor to discuss this lab. Also your renal function was very mildly depressed and should be followed over time. Drink plenty of fluids. Return if pain recurs. Follow-up with your nurse practitioner as scheduled.
--- NOTE | 2022-12-30 20:13 | XRAY Report ---
PROCEDURE: Chest 1 View X-Ray INDICATIONS: Chest Pain TECHNIQUE: One view of the chest was acquired. COMPARISON: None. FINDINGS: Surgical changes and devices: None. Lungs and pleura: No pleural effusions or pneumothorax. Lungs are clear. Mediastinum: Mediastinal contours appear normal. Heart size is normal. Bones and chest wall: No suspicious bony lesions. Overlying soft tissues appear unremarkable. IMPRESSION: Normal for age, source of chest pain is not found. Reviewed by: Gokul Bahena MD on 12/30/2022 8:11 PM PDT Approved by: Gokul Bahena MD on 12/30/2022 8:11 PM PDT Station ID: [id number]
[2022-12-30 20:49] LABS: BASOPHILS % (AUTO) 0.4 %; EOSINOPHILS # (AUTO) 0.1 10^3/uL (0.0-0.7); EOSINOPHILS % (AUTO) 0.5 %; HGB - HEMOGLOBIN 14.1 g/dL (12.0-16.0); LYMPHOCYTES # (AUTO) 1.2 10^3/uL (1.5-3.5); MEAN CORPUSCULAR HEMOGLOBIN 30.1 pg (27.0-31.0); MEAN CORPUSCULAR HGB CONC 33.6 g/dL (32.0-36.0); MEAN CORPUSCULAR VOLUME 89.6 fL (81.0-99.0); MEAN PLATELET VOLUME 9.4 fL (7.9-10.8); MONOCYTES # (AUTO) 0.7 10^3/uL (0.0-1.0); MONOCYTES % (AUTO) 6.7 %; NEUTROPHILS # (AUTO) 8.2 10^3/uL (1.5-6.6); PLT - PLATELET COUNT 224 10^3/uL (130-450); RED BLOOD COUNT 4.69 10^6/uL (4.20-5.40); RED CELL DISTRIBUTION WIDTH 13.5 % (12.0-15.0); WHITE BLOOD COUNT 10.3 x10^3/uL (4.8-10.8)
[2022-12-30 21:02] VITALS: BP 174/74
[2022-12-30 21:02] LABS: ALBUMIN 4.3 g/dL (3.2-5.5); ALBUMIN/GLOBULIN RATIO 1.4 (1.0-2.2); BILIRUBIN,TOTAL 0.5 mg/dL (0.2-1.0); CREATININE 1.2 mg/dL (0.4-1.0); POTASSIUM 4.3 mmol/L (3.5-5.0); TOTAL PROTEIN 7.4 g/dL (6.7-8.2)
[2022-12-30 21:51] LABS: ESTIMATED AVERAGE GLUCOSE 134 mg/dL (70-100); HEMOGLOBIN A1c% 6.3 % (4.27-6.07)
== END 2022-12-30 21:19 | disposition home or self-care (01) ==
LOC: ED 19:46
DX: R73.9 Hyperglycemia, unspecified (principal); R07.9 Chest pain, unspecified
CPT/HCPCS: 36415; 80053; 83036; 83690; 84484; 85025; 93005; 99283; 99284

== ENCOUNTER 2023-06-19 13:00 | Outpatient (CLI) | payer MEDICARE, OTHER ==
--- NOTE | 2023-06-19 15:01 | DEXA Report ---
PROCEDURE: Dexa Spine and/or Hip INDICATIONS: OSTEOPENIA TECHNIQUE: Dual energy x-ray absorptiometry (DXA) was performed on a [employer] System. Regions measur ed are the AP Spine, femoral neck, and if needed forearm. COMPARISON: 03/13/2019 FINDINGS: Lumbar Spine: Bone Mineral Density 1.1 to g/cm/cm,T score -0.5. Since the most recent prior study, there has been a statistically significant decrease in bone mineral density by -5.5 percent. Left Femoral Neck: Bone Mineral Density 0.799 g/cm/cm, T score -1.7. Left Hip: Bone Mineral Density 0.833 g/cm/cm,T score -1.4. Since the most recent prior study, there has been a statistically significant decrease in bone mineral density by -4.4 percent. (T score greater or equal to -1.0: NORMAL) (T score from -1.1 to -2.4: OSTEOPENIA) (T score less than or equal to -2.5 to: OSTEOPOROSIS) Impression: By WHO criteria, this patient has low bone density (osteopenia). Interval statistical decrease in bone minteral density of the lumbar spine. Interval statistical decr ease in bone minteral density of the hip. Patients with diagnosis of osteoporosis or osteopenia should have regular bone mineral density assess ment. For those eligible for Medicare, routine testing is allowed once every 2 years. Testing frequ ency can be increased for patients who have rapidly progressing disease or for those who are receivin g medical therapy to restore bone mass. Reviewed by: Adarsh Thompson on 06/19/2023 3:00 PM PDT Approved by: Adarsh Thompson on 06/19/2023 3:00 PM PDT Station ID: [id number]
== END 2023-06-19 13:01 | disposition home or self-care (01) ==
LOC: DI 13:00
PROVIDERS: ATTEND Registered Nurse
DX: M85.89 Other specified disorders of bone density and structure, multiple sites (principal)

== ENCOUNTER 2023-06-19 13:01 | Outpatient (CLI) | payer MEDICARE, OTHER ==
--- NOTE | 2023-06-20 09:39 | Mammography Report ---
BILATERAL DIGITAL SCREENING MAMMOGRAM 3D/2D: 06/19/2023 CLINICAL: Routine screening. Comparison is made to exams dated: 07/01/2021 mammogram, 04/26/2020 breast MRI, 04/15/2020 ultrasound, and 04/15/2020 mammogram - [facility]. There are scattered areas of fibroglandular density in both breasts (category b / 25%-50% glandular t issue). There are benign calcifications in both breasts. No significant masses, calcifications, or other findings are seen in either breast. There has been no significant interval change. IMPRESSION: BENIGN There is no mammographic evidence of malignancy. A 1 year screening mammogram is recommended. Based on the Tyrer Cuzick model (a risk assessment model) the patients lifetime risk is 3.1% and her 10 year risk is 3.1%. According to the ACR, ACS, and NCCN guidelines, an annual breast MRI exam lui g with mammogram is recommended if the patients lifetime risk is 20% or greater. This exam was interpreted at Station ID: [id number]. NOTE: For mammograms, a report in lay terms will be sent to the patient. Approximately 15% of breast malignancies will not be visualized mammographically. In the management of a palpable breast mass, a negative mammogram must not discourage biopsy of a clinically suspicious lesion. Electronically Signed By: Isra patino/ward:06/19/2023 15:40:12 letter sent: No_Letter ACR BI-RADS Category 2: Benign Finding(s) 3342F PARENCHYMAL PATTERN: (A) - The breast(s) demonstrate(s) scattered fibroglandular densities. BI-RADS CATEGORY: (2) - 2 Mammogram [id number] 1 year screening LATERALITY: (B)
== END 2023-06-19 13:02 | disposition home or self-care (01) ==
LOC: DI 13:01
PROVIDERS: ATTEND Registered Nurse
DX: Z12.31 Encounter for screening mammogram for malignant neoplasm of breast (principal); R92.323 Mammographic fibroglandular density, bilateral breasts

== ENCOUNTER 2023-09-27 01:20 | Outpatient (CLI) | payer MEDICARE, OTHER | END 2023-09-27 23:59 | disposition EMS.NT | LOC: EMS 01:20 | DX: R20.2 Paresthesia of skin (principal); R09.89 Other specified symptoms and signs involving the circulatory and respiratory systems; R60.0 Localized edema ==

== ENCOUNTER 2023-10-01 07:00 | Outpatient (CLI) | payer MEDICARE, OTHER ==
--- NOTE | 2023-10-01 18:15 | XRAY Report ---
PROCEDURE: Shoulder 2+V RT INDICATIONS: PAIN IN RIGHT SHOULDER TECHNIQUE: 3 views of the shoulder were acquired. COMPARISON: None. FINDINGS: Bones: No fractures or dislocations. No suspicious bony lesions. Visualized ribs appear intact. Soft tissues: No suspicious soft tissue calcifications. The visualized lungs are within normal limi ts. IMPRESSION: No visualized acute fracture or dislocation. However, occult injury cannot be excluded. Recommend nevaeh rt interval imaging follow-up in 7-10 days as clinically indicated for additional evaluation. Reviewed by: Yvette Rene MD on 10/01/2023 6:14 PM PST Approved by: Yvette Rene MD on 10/01/2023 6:14 PM PST Station ID: [id number]
== END 2023-10-01 23:59 | disposition home or self-care (01) ==
LOC: DI.S 07:00
PROVIDERS: ATTEND Registered Nurse
DX: M25.511 Pain in right shoulder (principal)